=== PATIENT | male | born 1960 | race Two or more races ===

== ENCOUNTER 2019-10-05 07:00 | Inpatient (IN) | payer OTHER ==
[~2019-10-05] VITALS: Ht 170.2 cm; Wt 90.7 kg
[2019-12-17] MEDS ORDERED: BIKTARVY 50-201 EACH PO (10:52)
[2019-12-17] MEDS ORDERED: LIPITOR10 MG ORAL (11:29)
[2019-12-17] MEDS ORDERED: ASPIR 8181 MG ORAL (11:29)
[2019-12-17] MEDS ORDERED: VENLAFAXINE HCL75 MG ORAL (11:31)
[2019-12-17] MEDS ORDERED: ATIVAN2 MG ORAL (11:33)
[2019-12-17] MEDS ORDERED: TEMAZEPAM30 MG ORAL (11:34)
[2019-12-17] MEDS ORDERED: TRAZODONE HCL150 MG ORAL (11:34)
[2019-12-17] MEDS ORDERED: PROSCAR5 MG ORAL (11:35)
[2019-12-17] MEDS ORDERED: CYCLOBENZAPRINE10 MG ORAL (11:36)
[2019-12-18] VITALS (14 sets, daily range): BP systolic 105–146; BP diastolic 73–98
[2019-12-18] MEDS ORDERED: Succinylcholine 20mg/ml 10ml vial ONE (06:46)
[2019-12-18] MEDS ORDERED: Rocuronium Bromide 100mg/10ml Inj IV ONE ×2 (06:46→09:31)
[2019-12-18] MEDS ORDERED: fentaNYL 100 mcg/2 mL IV ONE ×2 (06:48→12:09)
[2019-12-18] MEDS ORDERED: Midazolam 2mg/2ml Inj ONE (06:48)
[2019-12-18] MEDS ORDERED: Lidocaine 1% MPF 10mg/ml 5ml ONE (06:53)
[2019-12-18] MEDS ORDERED: ceFAZolin sod 2 GM in NS 55 ML IVPB ONE (07:00)
[2019-12-18] MEDS ORDERED: propofoL 1,000mg/100ml IV ONE (07:00)
[2019-12-18] MEDS ORDERED: LR 1000ml ONE (07:00)
[2019-12-18] MEDS ORDERED: Neostigmine 1mg/ml 10ml Inj ONE (07:00)
[2019-12-18] MEDS ORDERED: Sterile Water Irrig 1000ml IRRIG ONE (07:00)
[2019-12-18] MEDS ORDERED: Vancomycin 1gm vial IVPB ONE ×2 (07:07→11:40)
[2019-12-18] MEDS ORDERED: Thrombin 5000 units TOPIC ONE (07:08)
[2019-12-18] MEDS ORDERED: Gelfoam Size TOPIC ONE (07:08)
[2019-12-18] MEDS ORDERED: Heparin 5000 units/ml inj ONE (07:08)
[2019-12-18] MEDS ORDERED: Bacitracin 50000 Units Vial ONE (07:09)
[2019-12-18] MEDS ORDERED: Ropivacaine 5mg/ml Vial 20ml INJ ONE (07:09)
[2019-12-18] MEDS ORDERED: Bupivacaine w/Epi 0.5% 30ml Vial INJ ONE (07:09)
--- NOTE | 2019-12-18 07:26 | Pre-Procedure Note/Attestation ---
Pre-Procedure Note/Attestation Complete Prior to Procedure Planned Procedure: not applicable Procedure Narrative: Stage 1 Anterior Lumbar interbody fusion of L45 and L5S1 with bone morphogenetic protein and allograft Stage 2 Posterior bacon lu/davis laminectomy pedicle screw fixation of L4,5,S1 bilaterally Indications for Procedure Pre-Operative Diagnosis: L45, L5S1 herniation back pain and radiculopathy Attestation I attest that I discussed the nature of the procedure; its benefits; risks and complications; and alternatives (and the risks and benefits of such alternatives ), prior to the procedure, with the patient (or the patient's legal major account representative). I attest that, if there was a reasonable possibility of needing a blood transfusion, the patient (or the patient's legal major account representative) was given the [place] [employer] [facility] standardized written summary, pursuant to the [place] Blood Safety Act ([place] Health and Safety Code # 1645, as amended). I attest that I re-evaluated the patient just prior to the surgery and that there has been no change in the patient's H&P, except as documented below: Brody Bishop MD Dec 18, 2019 07:26
--- NOTE | 2019-12-18 07:27 | Brief Operative Note ---
Immediate Post Operative Note Operative Note Chief Complaint: back pain and radiculopathy Pre-op Diagnosis: L45, L5S1 herniation back pain and radiculopathy Procedure: Stage 1 Anterior Lumbar interbody fusion of L45 and L5S1 with bone morphogenetic protein and allograft Stage 2 Posterior bacon lu/davis laminectomy pedicle screw fixation of L4,5,S1 bilaterally Post-op Diagnosis: same as pre-op Findings: consistent w/pre-op dx studies Surgeon: Dario Senior Telecommunications Engineer: Jaspreet Anesthesiologist: MIRACLE Anesthesia: general Specimen: none Complications: none - d Condition: stable Fluids: IVF Estimated Blood Loss: minimal Drains: none Implant(s) used?: Yes - stage 1 (nuvasive brigade screwsx4 24mm )x2 stage 2 synthes pedicle screw sz [id number] Brody Bishop MD Dec 18, 2019 07:27
[2019-12-18] MEDS ORDERED: Naloxone 0.4mg/ml Inj IVP PRN ×2 (07:30→14:30)
[2019-12-18] MEDS ORDERED: Metoclopramide 10mg/2ml Inj IVP PRN (07:30)
[2019-12-18] MEDS ORDERED: Milk of Magnesia 30ml Ud ORAL PRN (07:30)
[2019-12-18] MEDS ORDERED: Morphine Sulfate 2mg/ml Inj(IV/IM USE ONLY) IV PRN (07:30)
[2019-12-18] MEDS ORDERED: HYDROcodone/Acetamin 7.5/325 tab ORAL PRN ×2 (07:30)
[2019-12-18] MEDS ORDERED: HYDROmorphone 1mg/ml Carpuject IVP PRN (07:30)
[2019-12-18] MEDS ORDERED: HYDROcodone/Acetamin 5/325 tab ORAL PRN (07:30)
[2019-12-18] MEDS ORDERED: Morphine Sulfate 4mg/ml Inj (IV USE ONLY) IV PRN (07:30)
[2019-12-18] MEDS ORDERED: Chloraseptic Spray 20mL Bottle ORAL PRN (07:30)
--- NOTE | 2019-12-18 08:00 | Consultation ---
DATE OF CONSULTATION: 12/18/2019 VASCULAR SURGERY CONSULTATION CONSULTING PHYSICIAN: Tenzin Vogel MD. The patient is a 59-year-old male, who was admitted to undergo anterior lumbar interbody fusions of L4 through S1 as determined by his spine surgeon, Dr. Brody Bishop. Prior to today, the patient had received at his home my separate informed consent form, which introduced me and explained my role in the approach for the anterior lumbar spine surgery. It also outlined the possible risks and complications including, but not limited to hemorrhage, need for blood transfusions, retrograde ejaculation, wound infection, bowel or ureter injury, arterial or venous injury or thrombosis, and the remote chance of , etc. The patient read the form, signed it and sent it back to my office. In addition, I as my usual protocol, I attempted to reach the patient by phone, but was unsuccessful. The patient did acknowledge receiving such a call. However again as my usual protocol, the patient was seen in the preoperative holding area with the contents of the form were reviewed and any questions were answered. He was shown the site of the incision. He had palpable bilateral dorsalis pedis pulses. He was 5 feet 7 inches tall, weighing approximately 200 pounds, giving him a BMI of 32. That consent was signed once again with a nurse witness and signature as well, and then placed into the chart. He fully understood and wished to proceed. There were no contraindications and we would proceed with the proposed operation. Tenzin Vogel M.D. DR: PEACE JOB#: [id number] CC:
[2019-12-18] MEDS ORDERED: Labetalol 5mg/ml 20ml vial IV ONE (08:28)
[2019-12-18] MEDS ORDERED: NS Irrig 1000ml IRRIG ONE (08:40)
[2019-12-18] MEDS ORDERED: Morphine Sulfate 10mg/ml Inj ONE (08:49)
--- NOTE | 2019-12-18 09:02 | Anethesia Preoperative Eval ---
Anesthesia Pre-op PMH/ROS General Date of Evaluation: Dec 18, 2019 Time of Evaluation: 07:02 Anesthesiologist: Marybeth ASA Score: ASA 2 Mallampati Score Class I : Soft palate, uvula, fauces, pillars visible Class II: Soft palate, uvula, fauces visible Class III: Soft palate, base of uvula visible Class IV: Only hard plate visible Mallampati Classification: Class II Surgeon: Dario Diagnosis: Lumbar radiculopathy Surgical Procedure: ALIF L4 to S1 with posterior decompression Anesthesia History: none Family History: no anesthesia problems Allergies: Coded Allergies: LATEX (Verified Allergy, Intermediate, rash, 12/17/19) SULFABENZAMIDE (Verified Adverse Reaction, Severe, Anaphylaxis, 12/17/19) CIPROFLOXACIN (Verified Adverse Reaction, Intermediate, vision problem; diarrhea; muscle weakness, 12/17/19) Medications: see eMAR Patient NPO?: Yes Past Medical History Cardiovascular: Reports: HTN - borderline; Denies: CAD, PR, valve dz, arrhythmia, other Pulmonary: Denies: asthma, COPD, [place], other Gastrointestinal/Genitourinary: Reports: GERD, CRI - elevated Cr.; Denies: ESRD, other Neurologic/Psychiatric: Reports: depression/anxiety, other - chronic pain; Denies: dementia, CVA, TIA Endocrine: Denies: DM, hypothyroidism, steroids, other HEENT: Denies: cataract (L), cataract (R), glaucoma, [place] (L), [place] (R), other Hematology/Immune: Reports: other - HIV + sable on antivirals; Denies: anemia, DVT, bleeding disorder Musculoskeletal/Integumentary: Denies: OA, RA, DJD, DDD, edema, other Other: obesity PMH Narrative: as above PSxH Narrative: wrist laceration repair Anesthesia Pre-op Phys. Exam Physician Exam Last Vital Signs Date Time Temp Pulse Resp B/P (MAP) Pulse Ox O2 Delivery O2 Flow Rate FiO2 12/18/19 05:51 96.9 78 18 142/85 (104) 98 12/18/19 05:47 Room Air Constitutional: NAD Neurologic: CN 2-12 intact Cardiovascular: RRR, no M/R/G Respiratory: CTA Gastrointestinal: other - besity Airway Exam Mallampati Score: Class II MO: full Neck: short ROM: full Teeth: intact Dentures: no upper, no lower Anesthesia Pre-op A/P Labs see chart Studies Pre-op Studies: EKG - NSR Risk Assessment & Plan Assessment: ASA 2 Plan: GA with ETT neuromonitoring Status Change Before Surgery: No Pre-Antibiotics Drug: Ancef 2gr. Given Within 1 Hr of Incision: Yes Time Given: 08:05 Kp Ly MD Dec 18, 2019 09:02
[2019-12-18] MEDS ORDERED: Acetaminophen (Non formulary) 100 ML IV ONE (09:15)
--- NOTE | 2019-12-18 11:19 | NUR ---
CASE MANAGEMENT:REVIEW 59 YR OLD MALE HERE FOR ELECTIVE SURGERY SI: BACK PAIN AND RADICULOPATHY 96.9 78 18 142/85 98% ON RA IS: TO SURGERY: ANTERIOR LUMBAR INTERBODY FUSION IV ANCEF Q8HRS : CURRENTLY IN SURGERY INTERQUAL CRITERIA MET
[2019-12-18] MEDS ORDERED: Glycopyrrolate 0.2mg/ml 1ml Vial ONE (12:08)
[2019-12-18] MEDS ORDERED: Sodium Chloride 10ml vial INJ ONE (12:10)
[2019-12-18] MEDS ORDERED: LR 1000ml 1,000 ML IVLG SCH (13:08)
[2019-12-18] MEDS ORDERED: Ketorolac 30mg Inj IV PRN (13:15)
[2019-12-18] MEDS ORDERED: Midazolam 2mg/2ml Inj IVP PRN (13:15)
[2019-12-18] MEDS ORDERED: Hydromorphone 0.5mg/0.5ml inj IVP PRN (13:15)
[2019-12-18] MEDS ORDERED: DiphenhydrAMINE 50mg/ml Inj IVP PRN ×2 (13:15→14:30)
[2019-12-18] MEDS ORDERED: ceFAZolin sod 1 GM in D5W 55 ML IV SCH (14:00)
[2019-12-18] MEDS ORDERED: Rate Change PCA 1 Each MISC PRN (14:30)
[2019-12-18] MEDS ORDERED: PCA Education Pamphlet MISC ONE (14:30)
--- NOTE | 2019-12-18 15:54 | Immediate Post-Op Evaluation ---
Immediate Post-Op Evalulation Immediate Post-Op Evalulation Procedure: ALIF L4 to S1, posterior decompression with interbody fusion L4 to S1 Date of Evaluation: Dec 18, 2019 Time of Evaluation: 15:53 IV Fluids: 2200 Blood Products: none Estimated Blood Loss: 400 Urinary Output: 700 Blood Pressure Systolic: 123 Blood Pressure Diastolic: 86 Pulse Rate: 102 Respiratory Rate: 22 O2 Sat by Pulse Oximetry: 99 Temperature (Fahrenheit): 97.8 Pain Score (1-10): 2 Nausea: No Vomiting: No Complications none Patient Status: reacts, patent, extubated, none Hydration Status: adequate Kp Ly MD Dec 18, 2019 15:54
[2019-12-18] MEDS ORDERED: Meperidine 25mg/0.5ml Inj (FOR RIGORS ONLY) ONE (16:19)
[2019-12-18] MEDS ORDERED: Meperidine 25mg/0.5ml Inj (FOR RIGORS ONLY) IV SCH (16:31)
--- NOTE | 2019-12-18 16:34 | Diagnostic Imaging Report ---
INDICATION: Pain, intraoperative TECHNIQUE: Intraoperative imaging Fluoroscopy time: 198 seconds Total dose: 2.07 mGym2 Total number of images: 8 COMPARISON: None FINDINGS: Intraoperative images demonstrate a surgical tool projected at the anterior aspect of what is presumably the L5-S1 disc. Subsequent images demonstrate fusion hardware at L5-S1, surgical tool projected at the L4-5 disc. Subsequent images demonstrate fusion hardware bridging L4-5 and L5-S1. Subsequent images demonstrate placement of posterior fusion hardware bridging L4-S1. IMPRESSION: Intraoperative imaging, as described
[2019-12-18] MEDS: PCA HYDROmorphone 1mg/ml 30 ML IV PRN (17:00)
--- NOTE | 2019-12-18 17:30 | NUR ---
NURSE NOTES: Report arrived from PACU, via bed in stable condition, on O2 3LNC. Respirations even, unlabored. Neuros intact, CMS+, skin warm, wiggles, no NT, pulses palpable, hand grasps/pedal pushes strong equal 5/5. Surgical site anterior abdomen (with shadow drainage) and posterior lower back (CDI), with ice packs. Pain to surgical site 3/10. LFA (site asymptomatic) infusing LR to gravity (will change to ordered IVF), WEB DESIGN INTERN Dilaudid bolus 0.4 mg, every 6 minutes, 6 mg lockout, patient instructed on WEB DESIGN INTERN use, WEB DESIGN INTERN button in hand. FC draining y/cl to gravity. Clear liquids provided. Vitals stable. No SOB, NV at this time. Oriented patient to room and call light. Bed in lowest position, will continue to monitor.
[2019-12-18] MEDS: Docusate 100mg cap ORAL SCH (18:00)
[2019-12-18] MEDS: ceFAZolin sod 1 GM in D5W 55 ML IV SCH ×2 (18:57→21:39)
[2019-12-18] MEDS: NS w/KCl 20mEq 1000ml 1,000 ML IV SCH (18:58)
--- NOTE | 2019-12-18 19:22 | NUR ---
HAND-OFF: Report given to Loida YBARRA, rounds made, patient stable. Addendum: 12/18/19 at 2050 by Darlene De Los Santos RN Endorsed home medications need reconciliation with .
--- NOTE | 2019-12-18 19:25 | NUR ---
NURSE NOTES: Receive a report from AMADA Colon. Round is done. Pt is awake and alert. No acute distress noted. Surgical site on anterior has saturated and marked on them. Posterior surgical is clean and intact. Motor intact on both feet and sensory recovers 50%. Pain is 7/10 and on FILM MOUNTER. Re-educate how to use FILM MOUNTER pump. Concentrated urine is patent via mary catheter. Call light within reach. Will continue to monitor.
[2019-12-18] MEDS: PCA shift volume MISC SCH (19:30)
--- NOTE | 2019-12-18 19:45 | Operative Note - Dictated ---
DATE OF OPERATION: 12/18/2019 OPERATION: 1. Muscle-sparing anterior abdominal retroperitoneal approach for anterior lumbar interbody fusions (two levels). 2. Plastic closure repair of abdominal wound. CO-SURGEONS: Tenzin Vogel MD, and Brody Bishop MD. ANESTHESIA: General. PREOPERATIVE DIAGNOSIS: Herniated nucleus pulposus with pain and radiculopathy. POSTOPERATIVE DIAGNOSIS: Herniated nucleus pulposus with pain and radiculopathy. DESCRIPTION OF PROCEDURE: Prior to surgery, the patient had received at his home my separate informed consent form, which introduced me and explained my role in the approach for the anterior lumbar spine surgery. It also outlined the possible risks and complications including, but not limited to hemorrhage, need for blood transfusions, retrograde ejaculation, wound infection, bowel or ureter injury, arterial or venous injury or thrombosis and the remote chance of , etc. The patient read the form, signed it, and sent it back to my office. In addition, as my usual protocol, I attempted to reach the patient by phone, but was unsuccessful; however, again as per usual protocol, the patient was seen in the preoperative holding area where the content of the form were reviewed and any questions were answered. He was shown the site of the incision. He had palpable bilateral dorsalis pedis pulses. That consent was signed once again with a nurse witness and signature as well and then placed into the chart. He fully understood and wished to proceed. A preoperative Vascular Surgery consultation report was dictated. The patient was taken into the operating room and placed in the supine position. Using an endotracheal tube, he was placed under general anesthesia without difficulty. His abdomen was prepped and draped in the usual sterile manner. An appropriate time-out was obtained. An oblique incision was made in the left lower quadrant from the low midline and carried down through the subcutaneous tissues down to the rectus fascia. Hemostasis was achieved using electrocautery. The rectus fascia was incised with extension into the fibers of the external oblique aponeurosis. Elevation of the rectus fascia away from the anterior surface of the muscle was then carried out for a distance of approximately 4 cm cephalad. This would allow for retraction of the rectus muscle laterally in order to obtain direct anterior-posterior approach to the anterior surface of the spine. The inferior epigastric vessels were identified and preserved. The posterior fascia was then incised and carefully from the peritoneum. Laterally, the retroperitoneal space was entered down to the left psoas muscle. The left ureter was identified and protected as it was mobilized with the peritoneum more medially until the left iliac artery was identified. Deep self-retaining retractors such as the Hector and Bookwalter were utilized to hold the abdominal wall and peritoneal contents in place while further dissection was carried out. The left iliac artery was now mobilized for its entire length up to its junction with the aorta. Deeper dissection revealed the common iliac vein, which was mobilized down to its iliolumbar branch. This branch was ligated using 0 silk with hemoclips placed and transected. Any other venous tributaries in the area were controlled with hemoclips and transected. Segmental vessels lying along the anterior surface of the spine were taken between hemoclips and transected. This allowed for mobilization of the iliac vessels both anteriorly and to the right to allow proper visualization of the anterior surface of the spine. Attention was directed below the bifurcation of the iliac vessels with several medial branches of the iliac vein were taken between hemoclips and transected. The middle sacral artery was taken between hemoclips and transected. Careful blunt dissection was carried out to preserve the sympathetic chains laterally as well as the parasympathetic plexus, which lies anteriorly along the surface of the fifth lumbar vertebra. Further careful blunt dissection was utilized to expose the anterior surface of the multiple vertebral bodies and intervening disk spaces. Several retractor blades were now placed in all quadrants with the rectus muscle retracted laterally, which allowed exposure and direct anterior-posterior approach to the anterior surface of the spine. A needle was inserted into the appropriate disk space and an x-ray was taken to verify the exposure. The spine surgeon then proceeded to perform diskectomy at the multiple levels and fusions, which will be dictated in a separate report by the spine surgeon, Dr. Bishop. Vancomycin powder was left in the wound. The retractor blades were removed. The integrity of the iliac vessels was then checked to make sure that there was no tear or thrombosis of the vein and that there was adequate flow through the artery with no evidence of spasm or thrombosis. A further check for hemostasis was made and the integrity of the ureter was verified. The peritoneum was allowed to return to its anatomical location and then the posterior sheath approximated using continuous running suture of 2-0 Vicryl. The anterior rectus sheath was approximated using #1 Vicryl. The subcutaneous tissues were irrigated using dilute Betadine solution as well as antibiotic solution. Hemostasis was noted to be achieved. Vancomycin powder was left in the wound. Plastic closure repair of the abdominal wound was continued using 2-0 Vicryl followed by skin approximation using continuous subcuticular suture of 3-0 Monocryl. Steri-Strips were applied. Dry sterile gauze and OpSite dressings were applied. The sponge, pad, needle, and instrument counts reported as correct. Estimated blood loss was 75 mL. There were no complications during this part of the procedure. At completion of this part of the procedure, the patient had maintenance of palpable bilateral dorsalis pedis pulses and the pulse oximeter registered 100% on the left foot. The patient would remain in the operating room to undergo posterior instrumentation by the spine surgeon. Tenzin Vogel M.D. DR: Anton JOB#: [id number] CC:
--- NOTE | 2019-12-18 20:00 | NUR ---
NURSE NOTES: Done post-op care including I/S. No gas pass yet and no bowel sound noted. Inform pt of anticipated signs and of PT tomorrow. Reapply ice bags on surgery sites. Will continue to monitor.
--- NOTE | 2019-12-18 20:30 | NUR ---
NURSE NOTES: Confirm with Dr. Bishop to resume pt's home medication except Aspirin. Order noted and carried out. Will continue to monitor.
[2019-12-18] MEDS: LORazepam 1mg tab ORAL SCH (21:37)
[2019-12-18] MEDS: TraZODone 100mg tab ORAL SCH (21:38)
--- NOTE | 2019-12-18 22:45 | Operative Note - Dictated ---
DATE OF OPERATION: 12/18/2019 Stage 1 of 2. SURGEON: Brody Bishop MD, Orthopaedic Spine Surgeon. EXPOSURE SURGEON: Tenzin Vogel MD. ANESTHESIA: General endotracheal anesthesia. PREOPERATIVE DIAGNOSES: 1. Intractable back pain. 2. Intractable leg pain. 3. Worsening radiculopathy. 4. Weakness. 5. Herniated nucleus pulposus, L5-S1 and L4-L5, herniation. 6. Neural foraminal stenosis, L5-S1 and L4-L5, herniation. POSTOPERATIVE DIAGNOSES: 1. Intractable back pain. 2. Intractable leg pain. 3. Worsening radiculopathy. 4. Weakness. 5. Herniated nucleus pulposus, L5-S1 and L4-L5, herniation. 6. Neural foraminal stenosis, L5-S1 and L4-L5, herniation. PROCEDURES PERFORMED: 1. Radical anterior lumbar intervertebral L5-S1, L4-L5 discectomy. 2. Anterior lumbar interbody fusion at L4-L5 using NuVasive Brigade 14 mm height x 12-degree cage with medium BMP and 5 mL of allograft [place] putty; anterior lumbar plating and fixation using 4 screws of 25 mm length. 3. Anterior lumbar interbody fusion at L5-S1 using NuVasive Brigade 14 mm height x 8-degree cage with medium BMP and 5 mL of allograft [place] putty; anterior lumbar plating and fixation using 4 screws of 25 mm length. 4. Anterior retroperitoneal exposure. 5. Supervision and interpretation of intraoperative fluoroscopy. 6. Supervision and interpretation of somatosensory-evoked potential and free running EMG monitoring. ESTIMATED BLOOD LOSS: Anesth record COMPLICATIONS: None. INDICATIONS FOR THE PROCEDURE: The patient is a 59-year-old male who presents for intractable back pain and radiculopathy, which is well documented in our clinical chart and records. We had a long discussion with Mannie regarding definitive surgical treatment options. We had a long discussion with the patient regarding the risks, alternatives, and benefits of procedure. Our description of the risks included a discussion in person as well as a signed consent, which detailed all pertinent risks and the procedure itself. Briefly, our discussion included but was not limited to infection, bleeding, pseudarthrosis, spinal cord injury, neurovascular injury, dural tear, CSF leak, neuropathy, paralysis, permanent weakness/drop foot, paresthesias, blindness, palsy, and weakness. The patient understood there may be a need for revision surgery or additional procedures. Approach-related complications including dysphonia, dysphagia, blindness, permanent vocal cord and neural injury, hematoma, swallowing and breathing difficulty; medical complications including liver, kidney, shock, and cardiopulmonary failure; anesthesia complications including , swelling, damage to the musculature, larynx , esophagus, trachea, blood vessels and muscles and lungs during this surgical procedure. Injury to deeper structures may be temporary or permanent. The patient understood these and elected to proceed. A written and verbal consent was given. We discussed the pros and cons of all the alternatives. We discussed the uncertainties associated with the decision. Afterwards, I assessed the patients understanding and explored their preferences. All questions were answered and no guarantees were given. Medical clearance was obtained prior to surgery. INTRAOPERATIVE FINDINGS: At L5-S1, the disc was collapsed. The disc was desiccated. There was evidence of radial tears, which were along the periphery bilaterally. Through these tears, there was communication of herniated nucleus pulposus, which extended posteriorly into the neural foramina, the tears on the posterior element being consistent with a vertical tear cephalocaudad measuring 10 degrees at L5-S1. At L4-L5, intraoperative findings demonstrated a disc with appropriate height demonstrating a radial tear along the periphery near the neural foramina. Once this tear was probed with a Microsect curette, I noted there to be an extrusion of a herniated fragment. This fragment was probed and was resected off the neural foramina and posterior element where it was causing clear encroachment therein. The disc itself appeared well hydrated and was soft and spongy. There was no evidence of any granular or crumbled nature to the disc. DESCRIPTION OF PROCEDURE: Under the benefit of general endotracheal anesthesia and with the assistance of the entire operative team, the patient was moved from the [facility] onto the operative table in the supine position on a radiolucent frame. The head was secured and positioned appropriately. Bilateral arms were secured with Gel Pads and foam and all bony prominences were padded. The bilateral lower extremity SCD and CHARLA hose were placed for DVT prophylaxis. A surgical timeout was called, which corroborated our planned procedure. Preoperative antibiotics were administered within 30 minutes of the incision for prophylaxis. Using lateral radiography, the operative levels were delineated. An incision was marked based on our interpretation of lateral radiography and afterwards the body was prepped and draped in the usual sterile manner. The family was notified that we were ready to commence surgery and were called in the waiting room hourly for updates. An incision was based on our lateral fluoroscopic image to center the incision at the L5-S1 and L4-L5 interspace. The wound was prepped and draped in the usual sterile fashion. Using a scalpel, a standard retroperitoneal exposure was performed by our vascular surgeon, Dr. Tenzin Vogel, and this is delineated in a separate operative note. After appropriate exposure at the L5-S1 disc space, we next turned our attention towards our radical discectomy. This was performed in standard fashion first beginning with a gentle mobilization of all superficial soft tissue overlying the disc space with Kittners. After this was performed, we marked our midline and confirmed our disc space on AP and lateral fluoroscopy. Next, using a 10 blade and long-handled scalpel, the disc was resected from the endplates in a box discectomy technique. Next, using Jackson elevators, the disc was mobilized off each endplate. After this, using large Leksell rongeurs, the entire disc was removed from the intervertebral space. All residual disc and cartilaginous endplates were resected using a combination of small and medium curettage, pituitaries, size 4 and size 6 Kerrison rongeurs. Next, the endplates were distracted in a parallel fashion using the Elie physician industrial and a 7.5 Thandle. At this point, the PLL was resected using a small curette and a Kerrison 4 rongeur. Next, the endplates were resected down to bleeding subchondral bone using a ring and box curette. For any residual bleeding which we encountered at this point, this was maintained and controlled with a combination of FloSeal, Gelfoam, and bipolar cautery. Afterwards, Tisseel was used to seal the discectomy site dorsally. Next, I then trialed the interspace for height, width, and depth. This was confirmed on fluoroscopy and once satisfied with our fit, we loaded and inserted a NuVasive Brigade PEEK cage size #14 mm height x 12-degree with bone morphogenetic protein and with allograft Rizwan bone under AP and lateral fluoroscopy. AP and lateral fluoroscopy confirmed excellent placement at the L5-S1 interspace. Afterwards, we turned our attention towards plating from the NuVasive Brigade Interlock system. This anterior lumbar plating and fixation at L5-S1 was using #4 screws of 25 mm length. Final radiographs confirmed appropriate placement of all hardware, screws, and our PEEK cage along with a mandaeism of the lumbar lordosis. Afterwards, Tisseel was used to seal the discectomy site ventrally. FloSeal and Zosyn antibiotics were placed directly on the anterior fusion site. Second level: L4-L5. After appropriate exposure at the L4-L5 disc space, we next turned our attention towards our radical discectomy. This was performed in standard fashion first beginning with a gentle mobilization of all superficial soft tissue overlying the disc space with Kittners. After this was performed, we marked our midline and confirmed our disc space on AP and lateral fluoroscopy. Next, using a 10 blade and long-handled scalpel, the disc was resected from the endplates in a box discectomy technique. Next, using Jackson elevators, the disc was mobilized off each endplate. After this, using large Leksell rongeurs, the entire disc was removed from the intervertebral space. All residual disc and cartilaginous endplates were resected using a combination of small and medium curettage, pituitaries, size 4 and size 6 Kerrison rongeurs. Next, the endplates were distracted in a parallel fashion using the Elie physician industrial and a 7.5 Thandle. At this point, the PLL was resected using a small curette and a Kerrison 4 rongeur. Next, the endplates were resected down to bleeding subchondral bone using a ring and box curette. For any residual bleeding which we encountered at this point, this was maintained and controlled with combination of FloSeal, Gelfoam, and bipolar cautery. Afterwards, Tisseel was used to seal the discectomy site dorsally. Next, I then trialed the interspace for height, width, and depth. This was confirmed on fluoroscopy and once satisfied with our fit, we loaded and inserted a NuVasive Brigade PEEK cage size #14 mm height x 8-degree with bone morphogenetic protein and with allograft [place] bone under AP and lateral fluoroscopy. AP and lateral fluoroscopy confirmed excellent placement at the L4-L5 interspace. Afterwards, we turned our attention towards plating from the NuVasive Brigade Interlock system. This anterior lumbar plating and fixation at L4-L5 using #4 screws of 25 mm length. Final radiographs confirmed appropriate placement of all hardware, screws, and our PEEK cage along with a mandaeism of the lumbar lordosis. Afterwards, Tisseel was used to seal the discectomy site ventrally. FloSeal and Zosyn antibiotics were placed directly on the anterior fusion site. The wounds were copiously irrigated with antibiotic-impregnated saline. Afterwards, FloSeal was placed to address residual bleeding. Powdered antibiotics were directly poured into the wound to provide for direct antibiosis. Next, I turned my attention to closure. Fascial closure was performed with 1-0 Vicryl suture. Subcutaneous tissues were reapproximated with 2-0 Vicryl. The superficial subcutaneous skin was closed with a running Monocryl and Dermabond. Dressings consisted of Tegaderm and 4 x 4 gauze. The patient tolerated the procedure well and after discussion with our vascular surgeon and our anesthesiologist, we made the determination to proceed with stage 2 of 2 our posterior-based approach. The details of stage 1 of the surgery were related to the patients family/representatives upon the conclusion of the procedure in the family waiting room. Stage 2 of 2. DATE OF OPERATION: 12/18/2019 SURGEON: Brody Bishop MD, Orthopaedic Spine Surgeon MANAGER PROJECT SURGEON: Tenzin Vogel MD. ANESTHESIA: General endotracheal anesthesia. PREOPERATIVE DIAGNOSES: 1. Intractable back pain. 2. Intractable leg pain. 3. Worsening radiculopathy. 4. Weakness. 5. Herniated nucleus pulposus, L5-S1 and L4-L5 herniation. 6. Neural foraminal stenosis, POSTOPERATIVE DIAGNOSES: 1. Intractable back pain. 2. Intractable leg pain. 3. Worsening radiculopathy. 4. Weakness. 5. Herniated nucleus pulposus, L5-S1 and L4-L5 herniation. 6. Neural foraminal stenosis, PROCEDURES PERFORMED: 1. Bilateral-sided Alves laminectomy/Lyle-Fortune osteotomy, and complete facetectomy at L4, L5, and S1. 2. L5-S1 and L4-L5 posterolateral fusion using allograft bone, local autograft, and residual allograft. 3. Percutaneous pedicle screw fixation at L5-S1 and L4-L5 using 6 screws from [employer] and the screws measured 6.5 x 45 mm in length, two rods, and two set screws. 4. Confirmation of pedicle screws placement using neural monitoring. 5. Use of intraoperative microscope. 6. Supervision and interpretation of intraoperative fluoroscopy. 7. Supervision and interpretation of somatosensory-evoked potential and free-running EMG monitoring. ESTIMATED BLOOD LOSS: Anesth Record. COMPLICATIONS: None. INDICATIONS FOR THE PROCEDURE: The patient is a 59-year-old male who presents for Stage 2 in regard to his intractable back pain and radiculopathy. This operative note now delineates the second stage of the procedure. INTRAOPERATIVE FINDINGS: Intraoperative findings demonstrated severe neural foraminal stenosis at L5-S1 due to superior articular process encroaching on the neural foramina. At L4-L5, there was also an element of neural foraminal stenosis secondary to the superior articular process, which was resected in total as a part of the Alves laminectomy/facetectomy/Lyle-Fortune osteotomy. DESCRIPTION OF PROCEDURE: Under the benefit of general endotracheal anesthesia and with the assistance of the entire operative team, the patient was moved from the radiolucent operative table in the prone position onto a Jerrell frame. The head was secured and positioned appropriately. Bilateral arms were secured with Gel Pads and foam and all bony prominences were padded. The bilateral lower extremity SCD and CHARLA hose were placed for DVT prophylaxis. A surgical timeout was called, which corroborated our planned procedure. Preoperative antibiotics were administered within 30 minutes of the incision for prophylaxis. Using lateral radiography, the operative levels were delineated. An incision was marked based on our interpretation of anterior, posterior, and lateral radiography and afterwards the body was prepped and draped in the usual sterile manner. The family was notified that we were ready to commence surgery and were called in the waiting room hourly for updates. An incision was based on our anterior, posterior, and lateral fluoroscopic image to center the incision at the L5-S1 and L4-L5 interspace. The wound was prepped and draped in the usual sterile fashion. Using a scalpel, a midline incision was made and the subcutaneous tissue was mobilized so that within the fascia, two Edd-based incisions were made, one incision on the each side focusing on the pedicle at L5-S1 through a percutaneous stab wound approach. All pedicles were cannulated in the exact same fashion for each level. This was performed in the following manner. The second incision was made slightly off midline and geared towards the L5-S1 and L4-L5 interspace approached. Using Jamshidi needles under direct AP and lateral fluoroscopic visualization, I approached the L5-S1 and L4-L5 pedicles with Jamshidi needles making sure to leave clearance along the medial pedicle boundary/wall, and next we advanced our bilateral pedicle screw entry points under AP and lateral fluoroscopy at both our pedicles bilaterally. Next, percutaneous screws were loaded on the left hand side and on the contralateral side, the right were placed. Screws were inserted in percutaneous fashion and afterwards these screws were stimulated. Next, a alia was lordosed and placed percutaneously through the incision. Next, we turned our attention to our Lyle-Fortune type osteotomy, facetectomy, and decompression. This was performed at each level in the exact same fashion. Based on AP and lateral fluoroscopy, we centered this incision over the facet joints at L5-S1 and L4-L5 of the contralateral side. This was taken down through the skin and subcutaneous tissues until the overlying pars facet joints of L5-S1 and L4-L5 were visualized under microscopic visualization. There was severe pressure on this neural foramina as palpated with the Shalini dental and a Croft ball probe. The pars was then visualized on the contralateral side and this was carefully resected along with the lamina and superior articular process using a [employer] Andrey AM8 drill bit. This was completely resected using a Lyle-Fortune type osteotomy and medial laminar removal and facetectomy. There was a significant amount of bleeding, which we encountered at this point and this was maintained and controlled with a combination of FloSeal, Gelfoam, and bipolar cautery. After complete resection of the facet joints, we noticed the lateral thecal sac margin and the neural elements. Next, I turned my attention to the stimulation of pedicle screws. All pedicle screws were stimulated with somatosensory-evoked potentials ranging over 20 milliampere with no response. Afterwards, percutaneous rods from the Synthes pedicle screw system were inserted and placed percutaneously and locking caps were placed. Final radiographs confirmed appropriate placement of all hardware, screws, and our PEEK cages along with a mandaeism of the lumbar lordosis. The wounds were copiously irrigated with antibiotic-impregnated saline. Afterwards, FloSeal was placed to address residual bleeding. Powdered antibiotics were directly poured into the wound to provide for direct antibiosis. Next, I turned my attention to closure. Fascial closure was performed with 1-0 Vicryl suture. Subcutaneous tissues were reapproximated with 2-0 Vicryl. The superficial subcutaneous skin was closed with a running Monocryl and Dermabond. Dressings consisted of Tegaderm and 4 x 4 gauze. The patient tolerated the procedure well and will now be admitted to the spine floor for further observation. The details of the entire surgery were related to the patients family/representatives upon the conclusion of the procedure in the family waiting room. Brody Bishop M.D. DR: Razia JOB#: [id number] CC: CARMELITA
[2019-12-19] VITALS (8 sets, daily range): BP systolic 132–172; BP diastolic 66–108
[2019-12-19] MEDS: Morphine Sulfate 4mg/ml Inj (IV USE ONLY) IV PRN ×2 (00:25→04:25)
--- NOTE | 2019-12-19 00:55 | NUR ---
NURSE NOTES: Given prn Morphine 4mg IVS for pain. Pt is aware of using BRIM CUTTER pump as well. No respiratory distress noted. Will continue to monitor.
[2019-12-19] MEDS: ceFAZolin sod 1 GM in D5W 55 ML IV SCH ×2 (04:30→13:30)
--- NOTE | 2019-12-19 05:00 | NUR ---
NURSE NOTES: After Morphine 4mg IVS prn for pain, pain level decreased. Sensory is getting improved. Will continue to monitor.
[2019-12-19] MEDS: NS w/KCl 20mEq 1000ml 1,000 ML IV SCH ×2 (05:35→16:54)
--- NOTE | 2019-12-19 07:18 | NUR ---
NURSE NOTES: Report received from myra RN, rounds made. Patient AOx4, talkative. Respirations even/unlabored on O2 3LNC. Abdominal pain 4/10, tolerating NUISANCE WILDLIFE TRAPPER Dilaudid bolus 0.4 mg every 6 minutes, 6 mg lockout. Ice pack to anterior abdomen and posterior lower back. Abdominal dressing with same shadow drainage (outlined), back dressing CDI. Bilateral SCDs on. PT to eval today, will order lumbar brace. Abdomen rounded, firm, no bowel sounds, no NV, tolerating clear liquids, does not want to be advanced yet, encouraged PO fluid intake, last BM 12/16, no gas. Encouraged IS/ankle rotation. Neuro checks done, CMS+, no NT, wiggles, skin warm, pulses palpable, hand grasps/pedal pushes strong equal 5/5, has a shaking to bilateral hands. Call light/NUISANCE WILDLIFE TRAPPER button in reach, bed in lowest position, will continue to monitor. Addendum: 12/19/19 at 0909 by Darlene De Los Santos RN IVF (NS+20KCL at 100 ml/hr) via right forearm, site asymptomatic, CDI.
--- NOTE | 2019-12-19 07:25 | NUR ---
HAND-OFF: Report given to AMADA Colon. Round is done. Pt is awake and having breakfast.
[2019-12-19] MEDS: PCA shift volume MISC SCH ×2 (07:28→19:00)
[2019-12-19] MEDS: LORazepam 1mg tab ORAL SCH ×2 (08:39→22:20)
[2019-12-19] MEDS: Cyclobenzaprine 10mg Tab ORAL SCH ×2 (08:39→17:02)
[2019-12-19] MEDS: Docusate 100mg cap ORAL SCH ×2 (08:40→17:02)
[2019-12-19] MEDS: Venlafaxine XR 37.5mg cap ORAL SCH (08:40)
--- NOTE | 2019-12-19 09:00 | NUR ---
PT Evaluation Note M.D. order received for PT evaluation and treatment. PT evaluation and treatment completed. Patient was able to participate with bed mobility using log-roll technique with min A, transfers and gait with min A x 30 ft with FWW. Patient initially reported nausea but nausea subsided with bedside sitting. RN was in to take BP and reported it was slightly elevated but was OK to proceed with PT. Patient will benefit from skilled PT to improve with strength , balance and gait stability. Patient to be seen BID 7 days/wk for length of stay. Recommend FWW and raised commode for use at home upon discharge. Patient cleared and safe to mobilize with RN assist with FWW. Patient to be seen BID 7 days/wk for length of stay.
--- NOTE | 2019-12-19 10:20 | 48 Hour Post Anesthesia Eval ---
Post Anesthesia Evaluation Procedure: ALIF L4 to S1, posterior decompression with interbody fusion L4 to S1 Date of Evaluation: Dec 19, 2019 Time of Evaluation: 10:19 Blood Pressure Systolic: 132 0: 76 Pulse Rate: 88 Respiratory Rate: 22 Temperature (Fahrenheit): 98.0 O2 Sat by Pulse Oximetry: 98 Airway: patent Nausea: No Vomiting: No Pain Intensity: 3 Hydration Status: adequate Cardiopulmonary Status: stable Mental Status/LOC: patient returned to baseline Follow-up Care/Observations: n/a Post-Anesthesia Complications: none Follow-up care needed: N/A Kp Ly MD Dec 19, 2019 10:20
--- NOTE | 2019-12-19 14:32 | NUR ---
CASE MANAGEMENT:REVIEW SI;POD #1 Radical anterior lumbar intervertebral L5-S1, L4-L5 discectomy. 99.8 110 22 172/66 95% 2L NC IS;FLEXERIL PO BID KCL IV @ 100 ML/HR COLACE PO BID DILAUDID IV Q24 HR PRN ZOFRAN IV PRN MED SURG STATUS DCP;PATIENT IS FROM HOME
--- NOTE | 2019-12-19 16:30 | NUR ---
NURSE NOTES: Dr. Méndez notified of elevated blood pressure and heart rate readings 172/106 and 166/108, HR 103 and 124. Updated MD on patient current status asymptomatic, denies SOB, CP, surgical site pain 3-10/22, patient has anxiety, constant shaking and rotating ankles, discussed patient is not on BP meds, IVF and activity with PT today. Order received for EKG, called Cardiology for Stat EKG. Discussed above with Dr. Maurice at bedside as well. see orders. Patient updated on new BP med and order for CBC/UA, verbalized understanding. Will follow as ordered.
--- NOTE | 2019-12-19 16:55 | Consultation ---
Consult Note Consult Note Cardiology for Dr. Méndez Full consult dictated # [id number] Julia Maurice MD Dec 19, 2019 16:55
--- NOTE | 2019-12-19 17:30 | NUR ---
NURSE NOTES: Patient reports he passed gas twice, no NV, no BS, abdomen large/rounded/tender, does not want to be advanced with his diet at this time. Will continue clear liquids.
[2019-12-19 18:25] LABS: BASOPHILS % (AUTO) 0.2 % (0.0-2.0); HEMATOCRIT 33.1 % (42.0-52.0); HEMOGLOBIN 11.4 G/DL (14.2-18.0); LYMPHOCYTES % (AUTO) 7.8 % (20.0-45.0); MEAN CORPUSCULAR VOLUME 91 FL (80-99); MONOCYTES % (AUTO) 7.2 % (1.0-10.0); NEUTROPHILS % (AUTO) 84.8 % (45.0-75.0); PLATELET COUNT 211 K/UL (150-450); RED BLOOD COUNT 3.65 M/UL (4.70-6.10); RED CELL DISTRIBUTION WIDTH 11.8 % (11.6-14.8); WHITE BLOOD COUNT 9.3 K/UL (4.8-10.8)
--- NOTE | 2019-12-19 18:30 | NUR ---
NURSE NOTES: Patient up to shower, surgical sites, pat dry, applied 4x4 with paper tape (abdomen with steri strips, posterior lower back with dermabond). Surrounding skin intact, no redness, swelling, drainage or bruising noted.
--- NOTE | 2019-12-19 19:52 | NUR ---
HAND-OFF: Report given to Dedra YBARRA, rounds made, patient stable. Endorsed EKG, UA still needed, no void yet ( dc at 1710).
[2019-12-19] MEDS: TraZODone 100mg tab ORAL SCH (21:33)
[2019-12-19] MEDS: Metoprolol Tartrate 12.5mg TAB ORAL SCH (21:34)
--- NOTE | 2019-12-19 22:45 | Consultation ---
DATE OF CONSULTATION: 12/19/2019 CARDIOLOGY CONSULTATION CONSULTING PHYSICIAN: Julia Maurice MD. Coverage for Dank Méndez MD. REASON FOR CONSULTATION: Hypertension and tachycardia. HISTORY OF PRESENT ILLNESS: The patient is a 59-year-old man, HIV positive, who underwent lumbar spine fusion yesterday. Postoperatively, he did well; however today, he was noted to be hypertensive with blood pressure up to 166/108, pulse 124 beats per minute, and Cardiology evaluation was requested. He denies any previous history of hypertension, coronary disease, CHF, or diabetes. He has a history of hyperlipidemia treated with statin. He currently has no complaint of chest pain, dyspnea, or palpitations. 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 MEDICATIONS: Biktarvy one daily, Flexeril 10 mg p.o. b.i.d., Proscar 5 mg daily, Effexor 225 mg daily, atorvastatin 10 mg daily, trazodone 300 mg nightly, Ativan 2 mg q.12h., Restoril 30 mg nightly p.r.n., Colace 100 mg twice daily, Dilaudid intravenously per protocol. ALLERGIES: Ciprofloxacin, latex, and sulfabenzamide. PAST MEDICAL HISTORY: As noted above. Also history of MRSA infection, history of major depression, HIV positive with no history of opportunistic infection. T-cell 1200. FAMILY HISTORY: Noncontributory. REVIEW OF SYSTEMS: As per HPI. PHYSICAL EXAMINATION: VITAL SIGNS: Blood pressure is currently 140/78, pulse 106 and regular, respirations 20, and afebrile. GENERAL: Alert, well-developed white male, in no acute distress. HEENT: Normocephalic and atraumatic. Pupils are equal, round, and reactive to light. Sclerae anicteric. Oral mucosa moist. NECK: Supple. There is no jugular venous distention. No carotid bruits. LUNGS: Clear to auscultation bilaterally anteriorly. HEART: Regular rate and rhythm. S1, S2. Tachycardic. No murmur, rubs, S3, or S4. ABDOMEN: Left lower surgical incision site clean. Dry dressing in place. Normoactive bowel sounds. Mild distention and tenderness. EXTREMITIES: No cyanosis, clubbing, or edema. Distal lower extremity pulses are 2+ bilaterally. LABORATORY DATA: Laboratory data and EKG are pending. ASSESSMENT AND RECOMMENDATIONS: The patient is a 59-year-old man, HIV positive with history of hyperlipidemia and BPH, who underwent lumbar spine fusion yesterday. Today, he is tachycardic and hypertensive without any symptoms other than mild postoperative pain. His elevated blood pressure and heart rate may be due to metabolic factors postoperatively. We will check labs and EKG however to rule out ischemia, infection, or other possible causes. We will give low-dose beta-blockers to control blood pressure. Further recommendations will be made based on the results of his testing and clinical course. Julia Maurice M.D. DR: Cait JOB#: [id number] CC:
[2019-12-19 22:54] LABS: APPEARANCE,URINE CLEAR; BILIRUBIN, URINE NEGATIVE (NEGATIVE); COLOR,URINE PALE YELLOW; GLUCOSE, URINE (UA) 1+ (NEGATIVE); KETONES,URINE NEGATIVE (NEGATIVE); LEUKOCYTE ESTERASE ,URINE 1+ (NEGATIVE); NITRITE,URINE NEGATIVE (NEGATIVE); PH,URINE 5 (4.5-8.0); PROTEIN,URINE 2+ (NEGATIVE); UROBILINOGEN,URINE NORMAL MG/DL (0.0-1.0)
--- NOTE | 2019-12-19 23:59 | NUR ---
NURSES NOTE: Received pt in bed, A/OX4, denies pain currently. SATURATOR TENDER Pump Dilaudid available for use, but pt states he is not using it. No outward s/s of distress noted. Breathing is even and unlabored on RA. IV R FA is intact and infusing IVF without incident. UA collected and sent to lab. STAT EKG done- Normal sinus rhythm. BP and HR within normal limits. Pt will continue to be monitored. All due meds will be given. Bed at lowest level. Call light within reach.
[2019-12-20] VITALS: BP 109/62
[2019-12-20] MEDS: NS w/KCl 20mEq 1000ml 1,000 ML IV SCH ×2 (03:19→11:00)
[2019-12-20 04:00] VITALS: BP 124/79
[2019-12-20] MEDS: PCA HYDROmorphone 1mg/ml 30 ML IV PRN (04:35)
--- NOTE | 2019-12-20 07:12 | NUR ---
NURSE NOTES: Report received from Dedra YBARRA, rounds made. Patient AOx4, talkative. Respirations even/unlabored on RA. Abdominal pain 3-10/22, states "I can tolerate it" PADDER CUSHION Dilaudid bolus 0.4 mg every 6 minutes, 6 mg lockout, connected, however, patient not using, will update MD. IVF (NS+20KCL at 100 ml/hr) via right forearm, site asymptomatic, CDI. Ice pack to anterior abdomen and posterior lower back. Abdominal/lower posterior surgical dressings remains CDI, will change today. Bilateral SCDs off, dangles at bedside. Abdomen rounded, soft, hypoactiv bowel sounds, no NV, tolerating clear liquids, advanced to regular diet, encouraged PO fluid intake, last BM 12/16, gas +. Encouraged IS/ankle rotation. Neuro checks done, CMS+, no NT, wiggles, skin warm, pulses palpable, hand grasps/pedal pushes strong equal 5/5, has a shaking to bilateral hands. Call light/PADDER CUSHION button in reach, bed in lowest position, will continue to monitor.
[2019-12-20] MEDS: PCA shift volume MISC SCH (07:16)
--- NOTE | 2019-12-20 07:47 | NUR ---
HAND OFF: Report given to AMADA Colon.
[2019-12-20 08:00] VITALS: BP_SYST 154; BP_SYST 157; BP_DIAS 97
[2019-12-20] MEDS: Venlafaxine XR 37.5mg cap ORAL SCH (09:37)
[2019-12-20] MEDS: Docusate 100mg cap ORAL SCH ×2 (09:38→17:21)
[2019-12-20] MEDS: LORazepam 1mg tab ORAL SCH (09:39)
[2019-12-20] MEDS: Metoprolol Tartrate 12.5mg TAB ORAL SCH (09:39)
[2019-12-20] MEDS: Cyclobenzaprine 10mg Tab ORAL SCH ×2 (09:39→17:21)
[2019-12-20 12:00] VITALS: BP 124/69
--- NOTE | 2019-12-20 13:30 | NUR ---
NURSE NOTES: Discussed patient current status with radha Robins to discharge home today, patient to follow up with MD for BP and UTI. Patient verbalized understanding.
--- NOTE | 2019-12-20 13:49 | Cardiology Progress Note ---
Assessment/Plan Problem List: (1) Pyuria (2) Hypertension (3) HNP (herniated nucleus pulposus), lumbar Status: stable, progressing Status Narrative Stable, s/p lumbar spine fusion surgery on 12/17 His BP has improved w/ metoprolol 12.5 mg bid His u/a shows + wbc and bacteria. Assessment/Plan Will change metoprolol to Toprol XL 25 mg /d for qd dosing Check urine c and s Can be discharged today from cardiac /med standpoint with followup as outpt for UTI and BP Subjective ROS Limited/Unobtainable: No Subjective cardiology for Dr. Méndez Mr Physioc is comfortable. No c/o pain or dysuria Objective Last 24 Hour Vital Signs Date Time Temp Pulse Resp B/P (MAP) Pulse Ox O2 Delivery O2 Flow Rate FiO2 12/20/19 12:00 98.2 86 20 124/69 (87) 98 86 12/20/19 09:39 100 157/97 12/20/19 08:00 98.5 100 18 154/97 (116) 97 12/20/19 08:00 100 18 97 12/20/19 04:00 77 18 98 12/20/19 04:00 97.6 77 18 124/79 (94) 98 12/20/19 00:00 98.9 76 18 109/62 (78) 94 12/20/19 00:00 76 20 94 12/19/19 21:34 88 141/80 12/19/19 21:00 Room Air 12/19/19 20:00 98.0 88 18 141/80 (100) 95 12/19/19 20:00 88 20 95 12/19/19 17:10 Room Air 12/19/19 16:00 98.1 106 20 140/78 (98) 98 12/19/19 16:00 106 20 98 General Appearance: WD/WN, no apparent distress, alert EENT: PERRL/EOMI Neck: supple, no JVD Rhythm: NSR Cardiovascular: normal peripheral pulses, normal rate, regular rhythm, no gallop/murmur Respiratory/Chest: lungs clear Abdomen: other - obese, soft, nontender L LQ surgical dressing intact, dry Extremities: no swelling Intake and Output 12/19/19 12/20/19 19:00 07:00 Intake Total 2480 ml 640 ml Output Total 2050 ml 1650 ml Balance 430 ml -1010 ml Intake Oral 1480 ml 640 ml IV Total 1000 ml Output Urine Total 2050 ml 1650 ml # Voids 3 Laboratory Tests Test 12/19/19 18:09 12/19/19 22:30 White Blood Count 9.3 K/UL (4.8-10.8) Red Blood Count 3.65 M/UL (4.70-6.10) L Hemoglobin 11.4 G/DL (14.2-18.0) L Hematocrit 33.1 % (42.0-52.0) L Mean Corpuscular Volume 91 FL (80-99) Mean Corpuscular Hemoglobin 31.2 PG (27.0-31.0) H Mean Corpuscular Hemoglobin Concent 34.3 G/DL (32.0-36.0) Red Cell Distribution Width 11.8 % (11.6-14.8) Platelet Count 211 K/UL (150-450) Mean Platelet Volume 6.1 FL (6.5-10.1) L Neutrophils (%) (Auto) 84.8 % (45.0-75.0) H Lymphocytes (%) (Auto) 7.8 % (20.0-45.0) L Monocytes (%) (Auto) 7.2 % (1.0-10.0) Eosinophils (%) (Auto) 0.0 % (0.0-3.0) Basophils (%) (Auto) 0.2 % (0.0-2.0) Urine Color Pale yellow Urine Appearance Clear Urine pH 5 (4.5-8.0) Urine Specific [place] 1.025 (1.005-1.035) Urine Protein 2+ (NEGATIVE) H Urine Glucose (UA) 1+ (NEGATIVE) H Urine Ketones Negative (NEGATIVE) Urine Blood 1+ (NEGATIVE) H Urine Nitrite Negative (NEGATIVE) Urine Bilirubin Negative (NEGATIVE) Urine Urobilinogen Normal MG/DL (0.0-1.0) Urine Leukocyte Esterase 1+ (NEGATIVE) H Urine RBC 5-10 /HPF (0 - 0) H Urine WBC 10-15 /HPF (0 - 0) H Urine Squamous Epithelial Cells None /LPF (NONE/OCC) Urine Bacteria Moderate /HPF (NONE) H Microbiology Date/Time Source Procedure Growth Status 12/18/19 05:50 Nasal Nares MRSA Culture - Final NO METHICILLIN RESISTANT STAPH AUREUS... Complete Julia Maurice MD Dec 20, 2019 13:49
[2019-12-20 16:05] VITALS: BP 120/73
--- NOTE | 2019-12-20 16:55 | NUR ---
NURSE NOTES: Obtained urine culture, sent to lab.
--- NOTE | 2019-12-20 18:00 | NUR ---
NURSE NOTES: Anterior abdomen and posterior lower back surgical site dressings changed, no redness/swelling/drainage or foul odor noted. Instructed patient on hand washing and how to change dressing daily after shower, pat dry, apply 4x4 with paper tape, verbalized understanding.
[2019-12-20] MEDS ORDERED: NORCO 10-325 T1 EACH ORAL (18:22)
[2019-12-20] MEDS ORDERED: CYCLOBENZAPRINE10 MG ORAL (18:23)
--- NOTE | 2019-12-20 19:00 | NUR ---
NURSE NOTES: Discharge instructions and prescription x1 reviewed with patient, verbalized understanding. All belongings, discharge instructions, prescription, front wheel walker and dressing supplies (4x4, paper tape) given to patient. IV heplock discontinued, no active bleeding. Patient ambulated down to lobby with RN, in stable condition. Discharged home at 1900.
[2019-12-21] MEDS ORDERED: Metoprolol Succinate XL 25mg tab ORAL SCH (09:00)
--- NOTE | 2019-12-21 16:02 | Discharge Summary ---
Discharge Summary Hospital Course Date of Admission Dec 18, 2019 at 05:13 Date of Discharge Dec 20, 2019 at 18:59 Admitting Diagnosis Lumbar radiculopathy, herniated disc Reason for Hospitalization: elective surgery JAI Byrnes is a 59 year old male who was admitted on Dec 18, 2019 at 05:13 for Herniated Nucleus Pulposus,Pain,Radiculopathy Patient was admitted for elective surgery. Procedures s/p 12/18/[address] Bishop-neurosurgeon Stage1 1. Radical anterior lumbar intervertebral L5-S1, L4-L5 discectomy. 2. Anterior lumbar interbody fusion at L4-L5 using NuVasive Brigade 14 mm height x 12-degree cage with medium BMP and 5 mL of allograft Rizwan putty; anterior lumbar plating and fixation using 4 screws of 25 mm length. 3. Anterior lumbar interbody fusion at L5-S1 using NuVasive Brigade 14 mm height x 8-degree cage with medium BMP and 5 mL of allograft Rizwan putty; anterior lumbar plating and fixation using 4 screws of 25 mm length. 4. Anterior retroperitoneal exposure. 5. Supervision and interpretation of intraoperative fluoroscopy. 6. Supervision and interpretation of somatosensory-evoked potential and free running EMG monitoring. Stage 2 1. Bilateral-sided Alves laminectomy/Lyle-Fortune osteotomy, and complete facetectomy at L4, L5, and S1. 2. L5-S1 and L4-L5 posterolateral fusion using allograft bone, local autograft, and residual bone morphogenetic protein. 3. Percutaneous pedicle screw fixation at L5-S1 and L4-L5 using 6 screws from [employer] and the screws measured 6.5 x 45 mm in length, two rods, and two set screws. 4. Confirmation of pedicle screws placement using neural monitoring. 5. Use of intraoperative microscope. 6. Supervision and interpretation of intraoperative fluoroscopy. 7. Supervision and interpretation of somatosensory-evoked potential and free-running EMG monitoring. s/p 12/18/[address] Vogel - vascular surgeon 1. Muscle-sparing anterior abdominal retroperitoneal approach for anterior lumbar interbody fusions (two levels). 2. Plastic closure repair of abdominal wound. Hospital Course status post 2 stage surgery course of recovery uneventful initially IV fluids s/p perioperative antibiotics neurovascular status closely monitored, remained stable incision clean dry and intact pain management was addressed pain controlled remained hemodynamically stable blood rpessure was managed per separations scientist with beta thais ambulated with PT fall precautions maintained; safe for ambulation DVT prophylaxis provided use of incentive spirometry was encouraged while in the bed slowly started on diet when bowel function returned, able to tolerate diet , IV fluids discontinued GI prophylaxis provided antiemetics were on board as needed initially reported discomfort with voiding, urine culture negative, Proscar started to improve voiding, voided freely, bowel regimen instituted patient was stable for discharge discharge instructions provided follow up with surgeon in the office as advised FINAL DIAGNOSES 1. Intractable back pain. 2. Intractable leg pain. 3. Worsening lumbar radiculopathy. 4. Weakness. 5. Herniated nucleus pulposus, L5-S1 and L4-L5, herniation. 6. Neural foraminal stenosis, L5-S1 and L4-L5, herniation. 7. s/p Stage 1 Anterior Lumbar interbody fusion of L45 and L5S1 with bone morphogenetic protein and allograft Stage 2 Posterior Lyle Fortune/Alves laminectomy pedicle screw fixation of L4,5,S1 bilaterally 8. Hypertension Discharge Medications Continued Medications: Atorvastatin Calcium* (Lipitor*) 10 Mg Tablet 10 MG ORAL BEDTIME for as prescribed, TAB (This prescription has been renewed) Bictegrav/Emtricit/Tenofov Ala (Biktarvy 50-200-25 mg Tablet) 1 Each Tablet 1 EACH PO DAILY for as prescrived, TAB (This prescription has been renewed) Cyclobenzaprine Hcl* (Flexeril*) 10 Mg Tablet 10 MG ORAL BID for Muscle Relaxant, #90 TAB (This prescription has been renewed) Finasteride* (Proscar*) 5 Mg Tablet 5 MG ORAL DAILY for as prescribed, #30 TAB 0 Refills (This prescription has been renewed) Hydrocodone Bit/Acetaminophen 10-325* ([place]horn 10-325*) 1 Each Tablet 1 TAB ORAL Q8HR PRN for For Pain, #90 TAB 0 Refills (This prescription has been renewed) PRN PAIN Lorazepam* (Ativan*) 2 Mg Tablet 2 MG ORAL BID for as prescribed, TAB (This prescription has been renewed) Temazepam* (Temazepam*) 30 Mg Capsule 30 MG ORAL BEDTIME PRN for Insomnia, CAP (This prescription has been renewed) Trazodone* (Trazodone*) 150 Mg Tablet 300 MG ORAL BEDTIME for as prescribed, TAB (This prescription has been renewed) Venlafaxine Hcl* (Venlafaxine Hcl*) 75 Mg Tablet 225 MG ORAL DAILY for as prescribed, TAB (This prescription has been renewed) Discharge Discharge Vital Signs Last Vital Signs Date Time Temp Pulse Resp B/P (MAP) Pulse Ox O2 Delivery O2 Flow Rate FiO2 12/20/19 16:05 98.8 88 18 120/73 (89) 96 12/20/19 09:00 Room Air 12/18/19 21:00 2.0 12/18/19 20:32 28 Discharge Disposition Patient was discharged home Discharge Instructions Discharge Instructions Special Instructions I have been assigned to complete a D/C Summary on this account. I was not involved in the patient management Conchita Burton NP Dec 21, 2019 16:02
== END 2019-12-20 18:59 | disposition home or self-care (01) | DRG 455 ==
LOC: SDSOVERFLO 12-18 05:13 → 3E 12-18 17:33
PROC: 0ST40ZZ Resection of Lumbosacral Disc, Open Approach (ICD-10-PCS; principal; 2019-12-18 07:00)
PROC: 0SG00A0 Fusion of Lumbar Vertebral Joint with Interbody Fusion Device, Anterior Approach, Anterior Column, Open Approach (ICD-10-PCS; principal; 2019-12-18 07:00)
PROC: 0ST20ZZ Resection of Lumbar Vertebral Disc, Open Approach (ICD-10-PCS; principal; 2019-12-18 07:00)
PROC: 01NB0ZZ Release Lumbar Nerve, Open Approach (ICD-10-PCS; principal; 2019-12-18 07:00)
PROC: 0SG00K1 Fusion of Lumbar Vertebral Joint with Nonautologous Tissue Substitute, Posterior Approach, Posterior Column, Open Approach (ICD-10-PCS; principal; 2019-12-18 07:00)
PROC: 01NR0ZZ Release Sacral Nerve, Open Approach (ICD-10-PCS; principal; 2019-12-18 07:00)
DX: M51.16 Intervertebral disc disorders with radiculopathy, lumbar region (principal); M51.17 Intervertebral disc disorders with radiculopathy, lumbosacral region; I10 Essential (primary) hypertension; R00.0 Tachycardia, unspecified; Z88.2 Allergy status to sulfonamides; Z88.1 Allergy status to other antibiotic agents; Z91.040 Latex allergy status; M48.061 Spinal stenosis, lumbar region without neurogenic claudication; M48.07 Spinal stenosis, lumbosacral region; Z86.19 Personal history of other infectious and parasitic diseases
CPT/HCPCS: 36415; 72020; 76000; 81003; 85025; 86850; 86900; 86901; 87081; 87086; 87181; 93005; 94003; 94150; J2180; J2250; J2405; J2710; J2795